=== PATIENT | male | born 1980 | race Two or more races ===

== ENCOUNTER 2022-04-25 10:45 | Emergency (ER) | payer OTHER ==
[~2022-04-25] VITALS: Ht 180.3 cm; Wt 59.0 kg
[2022-04-25] MEDS ORDERED: PEPCID AC20 MG PO (10:58)
[2022-04-25] MEDS ORDERED: GABAPENTIN100 MG (10:58)
[2022-04-25] MEDS ORDERED: SIMETHICONE80 MG PO (10:58)
== END 2022-04-26 09:10 | disposition left against medical advice (07) ==
LOC: ER 10:45
DX: R10.84 Generalized abdominal pain (principal); K76.0 Fatty (change of) liver, not elsewhere classified; Z98.890 Other specified postprocedural states

== ENCOUNTER 2023-01-09 12:13 | Outpatient (CLI) | payer OTHER ==
[~2023-01-09 12:13] MED LIST: GABAPENTIN100 MG; PEPCID AC20 MG PO; SIMETHICONE80 MG PO
== END 2023-01-09 12:17 | disposition home or self-care (01) ==
LOC: TOM 12:13
PROVIDERS: ATTEND Colon & Rectal Surgery
DX: Z93.3 Colostomy status (principal)